=== PATIENT | female | born 1965 | race Caucasian/White ===

== ENCOUNTER 2022-07-24 09:11 | Outpatient (CLI) | payer OTHER, SELFPAY | END 2022-07-24 09:12 | disposition home or self-care (01) | PROVIDERS: PCP Family Medicine; Visit Provider Family Medicine | DX: Z00.00 Encounter for general adult medical examination without abnormal findings (principal); R53.83 Other fatigue; E87.6 Hypokalemia; E78.2 Mixed hyperlipidemia; G25.81 Restless legs syndrome | CPT/HCPCS: 80053; 80061; 82306; 82607; 82728; 82746; 83735; 84425; 84443; 86140 ==

== ENCOUNTER 2022-07-28 08:55 | Outpatient (CLI) | payer OTHER, SELFPAY ==
--- NOTE | 2022-07-28 08:45 | CRLHL7_ITS ---
For Patients: As a result of the Century Cures Act, medical imaging exams and procedure reports are released immediately into your electronic medical record. You may view this report before your referring provider. If you have questions, please contact your health care provider. INDICATION: Pain TECHNIQUE: Ultrasound abdomen limited. Sonographic images of the right upper quadrant were obtained using dean-scale and color Doppler images. COMPARISON: None FINDINGS: Liver: Normal in size and echotexture. No masses. No intrahepatic biliary dilatation. Gallbladder: No stones or sludge. Normal wall thickness. No pericholecystic fluid. Common bile duct: 4.2 mm. Pancreas: Normal. Right kidney: 11.6 cm. Normal echotexture and cortex. Mild right hydronephrosis. No renal calculi. Vasculature: Proximal abdominal aorta and IVC are normal. IMPRESSION: Mild right hydronephrosis otherwise unremarkable right upper quadrant. Dictated by Leonidas Zamora MD @ 07/28/2022 10:10:52 AM (Electronically Signed)
== END 2022-07-28 08:56 | disposition home or self-care (01) ==
LOC: US 08:55
PROVIDERS: PCP Family Medicine; Visit Provider Family Medicine
DX: R10.9 Unspecified abdominal pain (principal)
CPT/HCPCS: 76705

== ENCOUNTER 2023-10-22 08:07 | Outpatient (CLI) | payer OTHER, SELFPAY | END 2023-10-22 08:08 | disposition home or self-care (01) | PROVIDERS: PCP Family Medicine; Visit Provider Family Medicine | DX: Z00.00 Encounter for general adult medical examination without abnormal findings (principal); E78.2 Mixed hyperlipidemia; R79.89 Other specified abnormal findings of blood chemistry; N20.0 Calculus of kidney; R07.9 Chest pain, unspecified; Z98.84 Bariatric surgery status; Z95.5 Presence of coronary angioplasty implant and graft | CPT/HCPCS: 80053; 80061; 82607; 82746; 84443 ==

== ENCOUNTER 2023-11-23 09:25 | Outpatient (CLI) | payer OTHER, SELFPAY | END 2023-11-23 09:26 | disposition home or self-care (01) | PROVIDERS: PCP Family Medicine; Visit Provider Family Medicine | DX: R74.8 Abnormal levels of other serum enzymes (principal); R39.15 Urgency of urination; B96.20 Unspecified Escherichia coli [E. coli] as the cause of diseases classified elsewhere; Z98.84 Bariatric surgery status | CPT/HCPCS: 80076; 82728; 83540; 83690; 87086; 87186 ==

== ENCOUNTER 2023-11-30 07:46 | Outpatient (RCR) | payer OTHER, SELFPAY | END 2024-03-29 23:59 | disposition home or self-care (01) | PROVIDERS: PCP Family Medicine; Visit Provider Family Medicine | DX: M54.2 Cervicalgia (principal); R10.9 Unspecified abdominal pain; Z51.89 Encounter for other specified aftercare | CPT/HCPCS: 97110; 97162 ==

== ENCOUNTER 2023-12-06 10:17 | Outpatient (CLI) | payer OTHER, SELFPAY ==
--- NOTE | 2023-12-06 10:30 | CRLHL7_ITS ---
For Patients: As a result of the Century Cures Act, medical imaging exams and procedure reports are released immediately into your electronic medical record. You may view this report before your referring provider. If you have questions, please contact your health care provider. INDICATION: ABNORMAL LEVELS OF OTHER SERUM ENZYMES COMPARISON: 07/28/2022 TECHNIQUE: Real time dean scale imaging and color Doppler analysis was performed of the right upper quadrant. FINDINGS: Ill-defined area of increased echogenicity with possible calcifications within the liver measures 2.4 x 1.5 x 1.7 cm. This was not present on the prior study. There is a normal appearance of the hepatic IVC and proximal abdominal aorta. There is no evidence of ascites. The gallbladder is absent. The common bile duct is of normal size and measures 7.2 mm in diameter at the level of the zenobia hepatis. The pancreas appears normal. There is no evidence of a stone or hydronephrosis within the right kidney. The right kidney measures 11.5 cm in length. IMPRESSION: Indeterminate lesion within the liver measuring 2.4 cm, new from prior. Dedicated pre and postcontrast CT of the liver recommended. Dictated by Leonidas Renee MD @ 12/07/2023 12:41:25 PM (Electronically Signed)
== END 2023-12-06 10:18 | disposition home or self-care (01) ==
LOC: US 10:19
PROVIDERS: PCP Family Medicine; Visit Provider Family Medicine
DX: R74.8 Abnormal levels of other serum enzymes (principal); K76.9 Liver disease, unspecified; R10.9 Unspecified abdominal pain
CPT/HCPCS: 76705

== ENCOUNTER 2023-12-09 09:46 | Outpatient (CLI) | payer OTHER, SELFPAY ==
--- NOTE | 2023-12-09 10:00 | CRLHL7_ITS ---
For Patients: As a result of the Century Cures Act, medical imaging exams and procedure reports are released immediately into your electronic medical record. You may view this report before your referring provider. If you have questions, please contact your health care provider. Indication: Abnormal findings on ultrasound Technique: CT Abdomen 54CC ISOVUE 370 LIVER PROTOCOL Please note that all CT scans at this facility use dose modulation, iterative reconstruction, and/or weight-based dosing when appropriate to reduce radiation dose to as low as reasonably achievable. Comparison: Ultrasound 12/06/2023 Findings: There is a hypodense lesion on the noncontrast images within the inferior liver with associated punctate measuring 1.5 cm. This demonstrates discontinuous peripheral enhancement on the arterial phase images which shows filling in on the portal venous phase and delayed images. Slight deformity of the overlying liver capsule noted. This corresponds to the hyperechoic lesion on ultrasound. Postop changes to the stomach. Gallbladder absent. Kidneys normal. Adrenal glands normal. Increased stool in the colon suggests constipation. No pleural effusion. No vertebral body compression fracture. Discogenic spurring. No adenopathy. Impression: 1.5 cm lesion within the inferior liver most consistent with benign intrahepatic hemangioma. A few scattered calcifications are present which are considered incidental. Please note that all CT scans at this facility use dose modulation, iterative reconstruction, and/or weight-based dosing when appropriate to reduce radiation dose to as low as reasonably achievable. Dictated by Leonidas Renee MD @ 12/10/2023 10:58:35 AM (Electronically Signed)
== END 2023-12-09 09:47 | disposition home or self-care (01) ==
LOC: CT 09:47
PROVIDERS: PCP Family Medicine; Visit Provider Family Medicine
DX: R93.2 Abnormal findings on diagnostic imaging of liver and biliary tract (principal); K76.9 Liver disease, unspecified
CPT/HCPCS: 74170; Q9967

== ENCOUNTER 2024-02-07 12:03 | Outpatient (CLI) | payer OTHER, SELFPAY | END 2024-02-07 12:04 | disposition home or self-care (01) | LOC: LKVREF 12:05 | PROVIDERS: PCP Family Medicine; Visit Provider Family Medicine | DX: I49.8 Other specified cardiac arrhythmias (principal); Z01.818 Encounter for other preprocedural examination | CPT/HCPCS: 84443 ==

== ENCOUNTER 2024-11-14 12:03 | Outpatient (CLI) | payer OTHER, SELFPAY | END 2024-11-14 12:04 | disposition home or self-care (01) | PROVIDERS: PCP Family Medicine; Visit Provider Family Medicine | DX: R74.8 Abnormal levels of other serum enzymes (principal); R53.83 Other fatigue; E78.2 Mixed hyperlipidemia; E66.9 Obesity, unspecified; M06.9 Rheumatoid arthritis, unspecified; N39.0 Urinary tract infection, site not specified; R39.15 Urgency of urination; Z98.84 Bariatric surgery status | CPT/HCPCS: 80053; 80061; 82607; 84443; 87086 ==

== ENCOUNTER 2024-11-29 07:16 | Outpatient (CLI) | payer OTHER, SELFPAY ==
--- NOTE | 2024-11-29 07:15 | CRLHL7_ITS ---
For Patients: As a result of the Century Cures Act, medical imaging exams and procedure reports are released immediately into your electronic medical record. You may view this report before your referring provider. If you have questions, please contact your health care provider. INDICATION: Liver lesion COMPARISON: Ultrasound 07/28/2022, CT 12/09/2023 TECHNIQUE: Real time dean scale imaging and color Doppler analysis was performed of the right upper quadrant. FINDINGS: Heterogeneous solid lesion within the right hepatic lobe inferiorly measures 2.2 x 1.7 x 1.8 cm, not significantly changed in size compared to the prior CT scan. The remainder of the liver parenchyma is normal. Liver measures 15.6 cm. There is a normal appearance of the hepatic IVC and proximal abdominal aorta. There is no evidence of ascites. The gallbladder is absent. The common bile duct is of normal size and measures 6 mm in diameter at the level of the zenobia hepatis. The pancreas is not visualized due to overlying bowel gas. There is no evidence of a stone or hydronephrosis within the right kidney. The right kidney measures 12.0 cm in length. IMPRESSION: Similar size of the lesion within the right hepatic lobe inferiorly. Dictated by Leonidas Renee MD @ 11/29/2024 11:54:49 AM (Electronically Signed)
== END 2024-11-29 07:17 | disposition home or self-care (01) ==
LOC: US 07:17
PROVIDERS: PCP Family Medicine; Visit Provider Family Medicine
DX: R93.2 Abnormal findings on diagnostic imaging of liver and biliary tract (principal); K76.9 Liver disease, unspecified
CPT/HCPCS: 76705

== ENCOUNTER 2024-12-14 13:46 | Outpatient (CLI) | payer OTHER, SELFPAY ==
--- NOTE | 2024-12-14 14:00 | CRLHL7_ITS ---
For Patients: As a result of the Century Cures Act, medical imaging exams and procedure reports are released immediately into your electronic medical record. You may view this report before your referring provider. If you have questions, please contact your health care provider. DXA BONE MINERAL DENSITY STUDY Reason for exam: Status post gastric bypass. Current height (in): 64. Weight (lb): 117. Menopause age: 53. Ethnicity: White. 1. Have you had a previous hip or vertebral fracture? No. 2. Have you had any fractures during your adult life which did not result from significant trauma (e.g., auto accident)? No. 3. Did either of your parents have a hip fracture? No. 4. Do you smoke? No. 5. Have you ever taken Glucocorticoids? Yes. 6. Do you have rheumatoid arthritis? Yes. 7. Do you have secondary osteoporosis? No. 8. Do you drink 3 or more alcoholic drinks per day? No. 9. Are you being treated for osteoporosis? No. 10. Have you ever taken any of the following medications: Actonel, Evista, Fosamax, Miacalcin, Reclast, Boniva, Forteo, HRT (i.e. estrogen/hormone therapy), Protelos, Prolia, Vitamin D, Calcium, other ??? please specify. ANSWER: Yes, Calcium. 11. Do you have any of the following medical conditions: Anorexia or bulimia, asthma or emphysema, end stage renal disease, hyperparathyroidism, any seizure disorders, cancer, inflammatory bowel diseases, hysterectomy, other ??? please specify. ANSWER: Yes, asthma or emphysema and inflammatory bowel diseases. 12. What was your maximum height (inches)? 66. 13. Do you perform weight bearing exercise regularly? No. 14. Do you regularly consume dairy products? Yes. 15. Do you drink caffeinated beverages? Yes. 16. At what age did your period start? 10. 17. Are you premenopausal? No. 18. How many full term pregnancies have you had? 2. 19. Have you ever missed your period for more than 6 months in a row (not including or menopause)? No. TECHNIQUE: Bone mineral density study was performed using the [employer] [facility]. FINDINGS: The results of the study expressed as bone mineral density (BMD) are as follows: Lumbar spine L1 to L4: BMD: 0.888 g/cm2. T-score: -1.4. Z-score: 0.0. Neck Left: BMD: 0.711 g/cm2. T-score: -1.2. Z-score: 0.1. Right: BMD: 0.680 g/cm2. T-score: -1.5 . Z-score: -0.2. Total Left: BMD: 0.902 g/cm2. T-score: -0.3 . Z-score: 0.6. Right: BMD: 0.848 g/cm2. T-score: -0.8. Z-score: 0.2. IMPRESSION: Osteopenia. *Comparison exams done prior to 10/2019 were performed on different unit, [facility]. FRAX 10-year Fracture Risk Major Osteoporotic Fracture: 15 percent Hip Fracture: 1.8 percent Reported Risk Factors: [place] () Neck BMD=0.680, BMI=20.1 Aurelia Blank M.D. Diagnostic Radiologist [email or web address] GINA/dolores SP/Dictated by: Aurelia Blank MD @ 12/18/2024 7:14:00 AM (Electronically Signed)
== END 2024-12-14 13:47 | disposition home or self-care (01) ==
LOC: RAD 13:47
PROVIDERS: PCP Family Medicine; Visit Provider Family Medicine
DX: Z98.84 Bariatric surgery status (principal); M85.89 Other specified disorders of bone density and structure, multiple sites
CPT/HCPCS: 77080

== ENCOUNTER 2024-12-22 13:19 | Outpatient (CLI) | payer OTHER, SELFPAY | END 2024-12-22 13:20 | disposition home or self-care (01) | PROVIDERS: PCP Family Medicine; Visit Provider Family Medicine | DX: N39.0 Urinary tract infection, site not specified (principal); B96.1 Klebsiella pneumoniae [K. pneumoniae] as the cause of diseases classified elsewhere; R79.89 Other specified abnormal findings of blood chemistry | CPT/HCPCS: 80076; 86803; 87086 ==

== ENCOUNTER 2025-01-10 08:02 | Outpatient (CLI) | payer OTHER, SELFPAY ==
--- NOTE | 2025-01-10 08:15 | CRLHL7_ITS ---
For Patients: As a result of the Century Cures Act, medical imaging exams and procedure reports are released immediately into your electronic medical record. You may view this report before your referring provider. If you have questions, please contact your health care provider. INDICATION: Liver lesion. COMPARISON: Abdominal ultrasounds dated 29 November 2024 and 28 July 2022. TECHNIQUE: Abdominal MRI with T1 in- and out of phase, T2, diffusion weighted, and progressively delayed post-contrast images. Intravenous gadolinium administered. FINDINGS: No fatty infiltration of the liver. 1.5 cm lesion in the lower portion of segment 5 of the liver shows discontinuous peripheral puddling of contrast with centripetal fill-in. No other focal liver lesions identified. No abnormalities identified in the visualized portions of the spleen, pancreas, adrenal glands, and kidneys. No hydronephrosis. No adenopathy. IMPRESSION: 1. 1.5 cm hemangioma in segment 5 of the liver. No further evaluation is required. Dictated by Anthony Munoz MD @ 01/12/2025 6:26:30 AM (Electronically Signed)
== END 2025-01-10 08:03 | disposition home or self-care (01) ==
LOC: MRI 08:02
PROVIDERS: PCP Family Medicine; Visit Provider Family Medicine
DX: K76.9 Liver disease, unspecified (principal); D18.09 Hemangioma of other sites; R93.2 Abnormal findings on diagnostic imaging of liver and biliary tract; R79.89 Other specified abnormal findings of blood chemistry
CPT/HCPCS: 74183; A9575

== ENCOUNTER 2025-01-29 13:44 | Outpatient (CLI) | payer OTHER, SELFPAY ==
[2025-01-31 22:35] LABS: HPV Source Cervical
[2025-02-01 14:33] LABS: HPV Genotype 16 by TMA Not Detected; HPV Genotype 18/45 by TMA Not Detected
[2025-02-07 17:18] LABS: Pap Test Digital Imaging Done; Pap Test Reviewed by Pathologi Done
== END 2025-01-29 13:45 | disposition home or self-care (01) ==
PROVIDERS: PCP Family Medicine; Visit Provider Obstetrics & Gynecology
DX: R39.15 Urgency of urination (principal); N39.0 Urinary tract infection, site not specified; Z12.4 Encounter for screening for malignant neoplasm of cervix; Z11.51 Encounter for screening for human papillomavirus (HPV)
CPT/HCPCS: 87086; 87624; 87625; 88141; 88142; 88175

== ENCOUNTER 2025-02-07 08:13 | Outpatient (CLI) | payer OTHER, SELFPAY ==
--- NOTE | 2025-02-07 08:15 | CRLHL7_ITS ---
For Patients: As a result of the Century Cures Act, medical imaging exams and procedure reports are released immediately into your electronic medical record. You may view this report before your referring provider. If you have questions, please contact your health care provider. CLINICAL HISTORY: Pelvic pain COMPARISON: 11/19/2020 TECHNIQUE: 2D dean-scale ultrasound. In addition, color Doppler and spectral Doppler analysis was performed of the pelvis using a transabdominal and transvaginal approach. Transvaginal imaging performed to better visualize the endometrial stripe and ovaries. FINDINGS: Uterine echotexture is heterogeneous with scattered calcification. Uterus measures 5.2 x 2.7 x 4.3 cm. Endometrial lining measures 3 millimeters. No endometrial fluid. The right ovary measures 2.5 x 1.8 x 2.5 cm in size and the left ovary measures 2.6 x 1.4 x 1.4 cm. The ovaries demonstrate normal arterial and venous blood flow on color Doppler and spectral Doppler analysis. There are no suspicious fluid collections within the cul-de-sac. IMPRESSION: Normal ovaries. No torsion or excess pelvic free fluid. No uterine fibroid. Dictated by Leonidas Renee MD @ 02/07/2025 11:30:17 AM (Electronically Signed)
== END 2025-02-07 08:14 | disposition home or self-care (01) ==
LOC: US 08:14
PROVIDERS: PCP Family Medicine; Visit Provider Obstetrics & Gynecology
DX: R10.2 Pelvic and perineal pain (principal)
CPT/HCPCS: 76830; 76856; 93976

== ENCOUNTER 2025-03-13 16:08 | Outpatient (CLI) | payer OTHER, SELFPAY | END 2025-03-13 16:09 | disposition home or self-care (01) | LOC: NFLDREF 03-17 15:37 | PROVIDERS: PCP Family Medicine; Referring Provider Family Medicine | DX: R35.0 Frequency of micturition (principal); R39.15 Urgency of urination | CPT/HCPCS: 87086 ==